=== PATIENT | female | born 1945 | race Caucasian/White ===

== ENCOUNTER 2017-04-28 17:01 | Emergency (ER) | payer OTHER, MEDICAID ==
[2017-04-28 18:06] LABS: BASOPHIL % 0.9 % (0-2); RED CELL DISTRIBUTION WIDTH 14.2 % (11.5-14.5)
[2017-04-28 18:11] LABS: microscopic required? NO
[2017-04-28 18:13] LABS: PLATELET COUNT 414 x10^3mcL (130-400)
[2017-04-28 18:26] LABS: CALCIUM 9.2 mg/dL (8.5-10.1); CARBON DIOXIDE 24.1 mmol/L (21-32); CHLORIDE SERUM 96 mmol/L (98-107); CREATININE SERUM 1.1 mg/dL (0.6-1.0); GLUCOSE SERUM 139 mg/dL (74-106); POTASSIUM SERUM 3.8 mmol/L (3.5-5.1); SODIUM SERUM 130 mmol/L (136-145)
[2017-04-28 18:31] LABS: ALBUMIN 4.1 g/dL (3.4-5.0); ALKALINE PHOSPHATASE 83 U/L (46-116); ALT/SGPT 24 U/L (14-59); AST/SGOT 17 U/L (15-37); BILIRUBIN TOTAL 0.4 mg/dL (0.20-1.00); MAGNESIUM 2.1 mg/dL (1.8-2.4); TOTAL PROTEIN, SERUM 8.1 g/dL (6.4-8.2)
[2017-04-28 18:33] LABS: UA SPECIFIC GRAVITY <=1.005 (1.005-1.035); urine erythrocyte NEGATIVE (NEGATIVE)
[2017-04-28 22:26] VITALS: BP 131/67
== END 2017-04-28 22:26 | disposition home or self-care (01) ==
LOC: ED 17:01
PROVIDERS: Emergency Medicine
DX: H83.09 Labyrinthitis, unspecified ear (principal); H81.10 Benign paroxysmal vertigo, unspecified ear; I10 Essential (primary) hypertension; E11.9 Type 2 diabetes mellitus without complications; E78.00 Pure hypercholesterolemia, unspecified; Z79.84 Long term (current) use of oral hypoglycemic drugs
CPT/HCPCS: 83880; J7030; J8597; Q0092

== ENCOUNTER → 2017-07-24 | Outpatient (CLI) | payer OTHER | END | disposition home or self-care (01) | LOC: MA 08:49 | PROC: BH02ZZZ Plain Radiography of Bilateral Breasts (ICD-10-PCS; principal; 2017-07-24) | DX: Z12.31 Encounter for screening mammogram for malignant neoplasm of breast (principal) | CPT/HCPCS: 77067 ==

== ENCOUNTER 2019-01-23 23:23 | Observation (INO) | payer OTHER ==
[~2019-01-23] VITALS: Ht 152.4 cm; Wt 59.4 kg
[2019-01-23 23:26] VITALS: Ht 152.4 cm; Wt 59.4 kg
--- NOTE | 2019-01-23 23:30 | NUR ---
EKG IN TRIAGE
--- NOTE | 2019-01-23 23:35 | NUR ---
PT TO RM 9 AT THIS TIME.
--- NOTE | 2019-01-23 23:45 | NUR ---
PT BIB SELF FOR PRESSURE LIKE RADIATING TO LEFT ARM CHEST PAIN X2 HRS ORDER ENTRY CLERK SP CLEANING IN HER KITCHEN. PT ALSO C/O DIZZINESS AND NAUSEA AT THIS TIME. PT ABLE TO AMBULATE WITH A STEADY GAIT FROM [facility] TO [facility]. PT ALSO C/O THROBBING LIKE HEADACHE X1 WEEK. DENIES ANY INJURY. PT IS AAOX4, NO DISTRESS NOTED, PT TALKING IN FULL SENTECES, NO SOB, RESP E/U, SKIN IS INTACT, PINK AND WARM. PT GOWNED, PLACED ON FULL CM, ATRIAL FIBRILLATION NOTED, HEART RATE-147 AT THIS TIME. WILL CONT TO MONITOR.
--- NOTE | 2019-01-24 00:10 | NUR ---
DR COTA AT THE [facility] FOR MSE TO PATIENT. SON AT THE BEDSIDE.
--- NOTE | 2019-01-24 00:30 | NUR ---
RECIEVED REPORT FROM TAMIKA GARDNER.
[2019-01-24 00:35] LABS: BASOPHIL % 0.5 % (0-2); PLATELET COUNT 381 x10^3mcL (130-400)
[2019-01-24 00:44] LABS: CALCIUM 9.2 mg/dL (8.5-10.1); CARBON DIOXIDE 17.7 mmol/L (21-32); CHLORIDE SERUM 91 mmol/L (98-107); CREATININE SERUM 1.2 mg/dL (0.6-1.0); GLUCOSE SERUM 197 mg/dL (74-106); POTASSIUM SERUM 3.5 mmol/L (3.5-5.1); SODIUM SERUM 130 mmol/L (136-145)
[2019-01-24 00:49] LABS: ALBUMIN 4.3 g/dL (3.4-5.0); ALKALINE PHOSPHATASE 50 U/L (46-116); ALT/SGPT 24 U/L (14-59); AST/SGOT 15 U/L (15-37); BILIRUBIN TOTAL 0.5 mg/dL (0.20-1.00); TOTAL PROTEIN, SERUM 7.9 g/dL (6.4-8.2)
--- NOTE | 2019-01-24 01:33 | NUR ---
PT AWAKE AND ALERT, LAYING IN POSITION OF COMFORT. CALL LIGHT W/IN REACH, FAMILY AT BEDSIDE. PT ASKING TO USE BEDISDE COMMODE. WILL CONTINUE TO MONITOR.
[2019-01-24] MEDS ORDERED: METFORMIN HYDR500 M1 PO ×2 (02:55→02:58)
[2019-01-24] MEDS ORDERED: FENOFIBRATE54 M1 PO (02:57)
[2019-01-24] MEDS ORDERED: NIFEDIPINE60 MG PO (02:58)
[2019-01-24] MEDS ORDERED: ENALAPRIL MALEA20 MG PO (02:58)
--- NOTE | 2019-01-24 03:03 | NUR ---
PT AWAKE AND ALERT, LAYING IN POSITION OF COMFORT. VSS, RESPS E/U, NAD NOTED AT THIS TIME. CALL LIGHT W/IN REACH. FAMILY AT BEDSIDE. BELONGINGS LIST AND MED REC COMPLETED. AWAITING BED ON TELE.
--- NOTE | 2019-01-24 03:41 | NUR ---
REPORT GIVEN TO BERNIE GARDNER
--- NOTE | 2019-01-24 04:10 | NUR ---
RECIEVED PT FROM ED VIA [facility], ACCOMPANIED BY NURSE. PT WALKED BY SELF TO BED. NO S/S OF PAIN OR DISTRESS AT THIS TIME. BREATHING E/U ON RA. TELE 3, NSR. LUCAS CP, N/V, DIZZINESS, AND PALPATATIONS AT THIS TIME. PALPABLE PULSES, NO EDEMA NOTED. ABD SOFT AND ROUND, NO TENDERNESS TO PALPATION. LAC IV, CDI. BED AT LOWEST POSTION. CALL LIGHT WITHIN REACH. WILL CONTINUE TO MONITOR.
[2019-01-24 04:27] VITALS: BP 139/64
[2019-01-24 06:17] VITALS: BP 144/56
[2019-01-24 06:31] LABS: BASOPHIL % 0.5 % (0-2); PLATELET COUNT 374 x10^3mcL (130-400); RED CELL DISTRIBUTION WIDTH 14.1 % (11.5-14.5)
[2019-01-24 07:06] LABS: CALCIUM 9.1 mg/dL (8.5-10.1); CARBON DIOXIDE 21.8 mmol/L (21-32); CHLORIDE SERUM 97 mmol/L (98-107); CREATININE SERUM 1.1 mg/dL (0.6-1.0); GLUCOSE SERUM 128 mg/dL (74-106); MAGNESIUM 1.8 mg/dL (1.8-2.4); POTASSIUM SERUM 3.6 mmol/L (3.5-5.1); SODIUM SERUM 133 mmol/L (136-145)
--- NOTE | 2019-01-24 08:52 | NUR ---
PATIENT C/O PERSISTENT HEADACHE AFTER TYLENOL. REQUESTING FOR HOME BP MEDS. DR WILLOW SMITH. TELEPHONE READBACK ORDER RECEIVED TO CONTINUE UPDATED HOME MEDS AND TO INITIATE SLIDING SCALE SET ORDERS. DR ACUNA AT BEDSIDE NOW FOR CARDIO CONSULT.
[2019-01-24 09:26] VITALS: BP 159/87
[2019-01-24 11:47] VITALS: BP 179/62
[2019-01-24 13:32] VITALS: BP 146/47
--- NOTE | 2019-01-24 15:50 | NUR ---
DR DAUGHERTY WAS AT BEDSIDE, INFORMED PATIENT SHE MAY BE DISCHARGED TODAY WITH PRESCIRIPTION FOR ELIQUIS AND AMIODARONE. PER MADDY MONTEJO, MAY NEED INSURANCE AUTHORIZATION FOR PRESC MEDS, WILL FOLLOW UP. PATIENT AND FAMILY MADE AWARE. PER PATIENT, SHE STATES FEELING BETTER AND DENIES CP OR PALPITATIONS THROUGHOUT SHIFT. TELE READING NSR, NO SIGNIFICANT CHANGES IN RHYTHM OR CONDITION. WILL CONT TO MONITOR.
[2019-01-24 15:54] VITALS: BP 131/48
--- NOTE | 2019-01-24 16:36 | NUR ---
DISCHARGE INSTRUCTIONS AND PRESCRIPTION GIVEN TO PATIENT AND FAMILY AT BEDSIDE, VERBALIZED UNDERSTANDING. IV DC'D CATH INTACT. TELE RETURNED TO TECH STATION. ALL QUESTIONS/CONCERNS ADDRESSED. LEAVING UNIT VIA WHEELCHAIR ACCOMPANIED BY ROLLER ENGRAVER.
== END 2019-01-24 16:40 | disposition home or self-care (01) | DRG 310 ==
LOC: ED 23:23 → DU 01-24 02:56
PROVIDERS: Emergency Medicine; Internal Medicine Pulmonary Disease; ADMIT Internal Medicine Pulmonary Disease
DX: I48.0 Paroxysmal atrial fibrillation (principal); I10 Essential (primary) hypertension; E11.9 Type 2 diabetes mellitus without complications; E78.1 Pure hyperglyceridemia; Z68.24 Body mass index [BMI] 24.0-24.9, adult
CPT/HCPCS: 82962; 83880; G0378; J0360; Q0092